=== PATIENT | female | born 1950 | race Caucasian/White ===

== ENCOUNTER 2016-09-16 11:07 | Observation (INO) | payer OTHER ==
[~2016-09-16] VITALS: Ht 162.6 cm; Wt 89.5 kg
[~2016-09-16 11:07] MED LIST: ACCURETIC 201 TABLE1 PO; ADVAIR 250/501 DISK IH; APIDRA100 UNIT/1 SC; ASPIR-LOW81 MG PO; ASPIRIN EC325 MG PO; CALCIUM 500 +1 EACH PO; CLOPIDOGREL75 MG PO; COLACE100 MG PO; CORRECTOL5 M1 PO; COUMADIN2 MG PO; GLUCOPHAGE1000 MG PO; INVOKANA100 MG PO; LANTUS 10100 UNITS/ SC; LIPITOR20 MG PO; LOPRESSOR50 MG PO; NORVASC10 MG PO; NOVOLIN,HU100 UNITS/ SC; NOVOLIN,HU100 UNITS1 SC; NOVOLOG 10100 UNITS/ SC; PROAIR HFA8.5 GM IH; TOPROL XL25 MG PO; TOPROL XL50 MG PO; TYLENOL EXTRA500 MG PO; ZESTORETIC 20-1 EAC1 PO
[2016-09-16 12:10] LABS: HEMATOCRIT 38.3 % (36.0-46.0); MCH 28.6 PG (29.0-34.0); MCHC 31.9 G/DL (30.0-36.0); MCV 89.9 FL (83-99); MEAN PLAT.VOLUME 9.8 uM^3 (9.5-12.4); PLATELET COUNT 289 K/uL (156-360); RBC DIS.WIDTH-CV 13.8 % (11.8-14.6); RBC DIS.WIDTH-SD 45.2 % (39-53); RED BLOOD COUNT 4.26 M/uL (3.80-5.20); WHITE BLOOD COUNT 10.4 K/uL (4.1-10.2)
[2016-09-16 12:24] LABS: CHLORIDE 106 mEq/L (99-109); POTASSIUM 4.2 mEq/L (3.7-5.4); SODIUM 141 mEq/L (136-147)
[2016-09-16 12:25] LABS: GLUCOSE 179 mg/dL (70-99)
[2016-09-16 12:27] LABS: ANION GAP 9 MEQ/L (2-14)
[2016-09-16 12:29] LABS: GFR ESTIMATE (CALCULATED) 59 mL/min/
[2016-09-16 12:30] LABS: UREA NITROGEN (BUN) 13 mg/dL (9-23)
[2016-09-16 13:25] LABS: D-DIMER ELISA 0.51 mg/L FEU (< 0.57)
[2016-09-16 13:27] LABS: TROP-I INTERPRETATION NEGATIVE; TROPONIN-I 0.02 ng/mL (0.0-0.30)
[2016-09-16] MEDS ORDERED: VOLTAREN 1% GE100 GM TP (15:39)
[2016-09-16] MEDS ORDERED: GABAPENTIN600 MG PO (15:39)
[2016-09-16] MEDS ORDERED: PLAVIX75 MG PO (15:40)
[2016-09-16] MEDS ORDERED: ADULT LOW DOSE81 M1 PO (15:44)
[2016-09-16] MEDS ORDERED: NOVOLIN,HU100 UNITS/ SC (15:45)
[2016-09-16] MEDS ORDERED: NOVOLIN,HU100 UNITS1 SC (15:46)
[2016-09-16] MEDS ORDERED: GLUCOTROL5 MG PO (15:47)
[2016-09-16] MEDS ORDERED: CYANOCOBALAM1000 MCG PO (15:47)
[2016-09-16] MEDS ORDERED: TYLENOL EXTRA500 MG PO (16:01)
[2016-09-16 20:52] VITALS: BP 183/82
[2016-09-16 20:52] LABS: TROP-I INTERPRETATION NEGATIVE; TROPONIN-I 0.01 ng/mL (0.0-0.30)
[2016-09-16 22:23] VITALS: BP 152/68
[2016-09-17 00:45] VITALS: BP 142/66
[2016-09-17 02:54] LABS: TROP-I INTERPRETATION NEGATIVE; TROPONIN-I < 0.01 ng/mL (0.0-0.30)
[2016-09-17 04:10] LABS: HDL CHOLESTEROL 42 MG/DL (Desirable>=50); LDL CHOLESTEROL 61 mg/dL (Desirable<100); NON-HDL CHOLESTEROL 111 mg/dL (Desirable<160); TOTAL CHOLESTEROL 153 mg/dL (Desirable<200); TRIGLYCERIDES 251 MG/DL (Normal: <150)
[2016-09-17 04:54] VITALS: BP 168/76
[2016-09-17 07:21] LABS: Estimated Average Glucose 174 mg/dL (70-123); HEMOGLOBIN A1c (GLYCOHEMOGLOB) 7.7 % HGB (Below 5.7)
[2016-09-17 07:52] VITALS: BP 170/78
[2016-09-17 08:43] LABS: POINT-OF-CARE METER ID UU13113831
[2016-09-17 12:36] VITALS: BP 133/62
[2016-09-17] MEDS ORDERED: SPIRIVA RESPIMAT4 GM IH (14:29)
[2016-09-17] MEDS ORDERED: NITROSTAT0.4 MG SL (14:29)
[2016-09-17] MEDS ORDERED: GABAPENTIN300 MG PO (14:30)
[2016-09-17] MEDS ORDERED: PROVENTIL HFA6.7 GM IH (14:31)
== END 2016-09-17 16:18 | disposition home or self-care (01) ==
LOC: EME 11:07 → EDOF 16:23 → 5WEST 20:43
PROVIDERS: Hospitalist; Internal Medicine
DX: R06.00 Dyspnea, unspecified (principal); J44.9 Chronic obstructive pulmonary disease, unspecified; I25.10 Atherosclerotic heart disease of native coronary artery without angina pectoris; Z95.1 Presence of aortocoronary bypass graft; E11.40 Type 2 diabetes mellitus with diabetic neuropathy, unspecified; I05.2 Rheumatic mitral stenosis with insufficiency; I11.9 Hypertensive heart disease without heart failure; E78.5 Hyperlipidemia, unspecified; I69.354 Hemiplegia and hemiparesis following cerebral infarction affecting left non-dominant side; Z87.891 Personal history of nicotine dependence; E66.9 Obesity, unspecified; Z68.33 Body mass index [BMI] 33.0-33.9, adult
CPT/HCPCS: 71020; 80048; 80061; 82948; 83036; 83880; 84484; 85027; 85379; 93005; 94640; 94640 76; 94799; 99202; 99281; 99285; G0378; J1644; J1815